=== PATIENT | female | born 1965 | race Caucasian/White ===

== ENCOUNTER 2021-09-03 01:53 | Emergency (ER) | payer OTHER ==
[~2021-09-03] VITALS: Ht 157.5 cm; Wt 136.0 kg
[2021-09-03] MEDS ORDERED: LISINOPRIL10 MG PO (02:12)
[2021-09-03] MEDS ORDERED: HYDROCODON-ACE1 EA10 PO (02:12)
[2021-09-03] MEDS ORDERED: AMBIEN10 MG PO (02:13)
[2021-09-03] MEDS ORDERED: ATIVAN0.5 MG PO (03:25)
--- NOTE | 2021-09-03 14:53 | EKG ---
[facility] [address] [facility] [place], [place] [address] Signed Normal sinus rhythm with sinus arrhythmia Normal ECG No previous ECGs available Confirmed by SUSU MARTINEZ MD ([id number] on 09/03/2021 2:53:05 PM Electronically Signed By: SUSU MARTINEZ MD 09/03/21 1453 PATIENT NAME: MIREYA LY Electrocardiogram DATE OF : 65 PHYSICIAN: SUSU MARTINEZ MD REPORT #: [id number] REPORT IS CONFIDENTIAL AND NOT TO BE RELEASED WITHOUT AUTHORIZATION
== END 2021-09-03 04:00 | disposition home or self-care (01) ==
LOC: ED 01:53
DX: R00.2 Palpitations (principal); E66.9 Obesity, unspecified; I10 Essential (primary) hypertension; Z88.5 Allergy status to narcotic agent; Z79.899 Other long term (current) drug therapy
CPT/HCPCS: 36415; 74018; 80053; 81001; 83735; 85025; 93005; 93010; 99285-25; A9270-GY